=== PATIENT | female | born 1945 | race Caucasian/White ===

== ENCOUNTER 2022-02-25 07:37 | Inpatient (IN) | payer MEDICARE, BC ==
[2022-02-19 15:58] LABS: BASOPHILS # (AUTO) 0.1 X10'3 (0-0.2); BASOPHILS % (AUTO) 1.2 % (0-1); EOSINOPHILS # (AUTO) 0.2 X10'3 (0-0.9); EOSINOPHILS % (AUTO) 3.1 % (0-6); LYMPHOCYTES # (AUTO) 1.8 X10'3 (1.1-4.8); LYMPHOCYTES % (AUTO) 25.8 % (21-51); MEAN CORPUSCULAR HEMOGLOBIN 33.4 PG (27.0-31.0); MEAN CORPUSCULAR HGB CONC 34.2 g/dL (33.0-36.5); MEAN CORPUSCULAR VOLUME 97.6 FL (78-98); MEAN PLATELET VOLUME 7.6 FL (7.4-10.4); MONOCYTES # (AUTO) 0.5 X10'3 (0-0.9); MONOCYTES % (AUTO) 6.5 % (2-12); NEUTROPHILS # (AUTO) 4.5 X10'3 (1.8-7.7); NEUTROPHILS % (AUTO) 63.4 % (42-75); PRE OP HEMATOCRIT 45.1 % (35.0-45.0); PRE OP HEMOGLOBIN 15.4 g/dL (12.0-16.0); PRE OP PLATELET COUNT 217 X10'3 (140-440); RED BLOOD COUNT 4.62 X10'6 (4.20-5.60); RED CELL DISTRIBUTION WIDTH 13.7 % (11.5-14.5)
[2022-02-19 16:10] LABS: PRE OP INR 1.1 INR; PRE OP PROTIME 10.9 SECONDS (9.0-12.0)
[2022-02-19 16:12] LABS: ALBUMIN 3.6 G/DL (3.4-5.0); ALBUMIN/GLOBULIN RATIO 1.1 (1.1-1.5); ALKALINE PHOSPHATASE 99 IU/L (46-116); BLOOD UREA NITROGEN 15 MG/DL (7-18); BUN/CREATININE RATIO 20.5 (6.6-38.0); CALCIUM 9.1 MG/DL (8.5-10.1); CHLORIDE 108 MMOL/L (99-107); CREATININE 0.73 MG/DL (0.40-0.90); PRE OP ALT 26 U/L (30-65); PRE OP ANION GAP 10 (8-16); PRE OP AST 12 U/L (10-37); PRE OP BILIRUB, TOTAL 0.4 MG/DL (0.0-1.0); PRE OP GLUCOSE 98 MG/DL (70-104); PRE OP SODIUM 142 MMOL/L (135-145); TOTAL CARBON DIOXIDE 24.2 MMOL/L (24-32); TOTAL PROTEIN 6.8 G/DL (6.4-8.2); eGFR 78 ML/MIN
[~2022-02-25] VITALS: Ht 165.1 cm; Wt 65.0 kg
[2022-02-25] VITALS (22 sets, daily range): BP systolic 93–149; BP diastolic 41–96
[~2022-02-25 07:37] MED LIST: CHOL4PAC PO; HYDROmorphone 1 mg/ml syringe IV PRN; HYDROmorphone inj. 0.5 MG/0.5 ML DISP.SYRIN IV PRN; MULT-1085 PO; acetaminophen 325mg tablet PO ONE; acetaminophen 325mg tablet PO PRN; bisacodyl 10mg suppository rectal RC PRN; cefazolin/dext.iso 2gm/100ml 100 ML IV ONE; celeCOXIB 100mg capsule PO ONE; diphenhydrAMINE 25mg capsule PO PRN; famotidine 20mg tablet PO ONE; gabapentin 300mg capsule PO ONE; magnesium hydroxide 30ml (MOM) UD suspension PO PRN; metoclopramide 5 mg/ml inj IV ONE; naloxone 0.4 mg/ml inj IV PRN; ondansetron/PF 4mg/2ml inj IV PRN; oxyCODONE SR 10mg (sust. release) tab -2 tabs (20mg) PO ONE; ringers solution, lacted 1,000 ML IV SCH; tranexamic acid inj. 1,000 MG in normal saline 100ml IV soln 90 ML IV ONE; vancomycin/NS 1 GM in NS 250 ML IV ONE
[2022-02-25] MEDS ORDERED: chloestyramine/aspartame 4gm packet PO PRN (07:45)
[2022-02-25] MEDS: gabapentin 300mg capsule PO SCH ×3 (08:00→20:29)
[2022-02-25] MEDS: multivitamins, therapeutics tablet PO SCH (08:00)
[2022-02-25] MEDS: ascorbic acid 500mg tablet PO SCH ×2 (08:00→20:29)
[2022-02-25] MEDS: aspirin 325mg tablet PO SCH (08:30)
--- NOTE | 2022-02-25 08:55 | NUR ---
MEDS NOT SCANNING, SCANNER NOT WORKING AND NOT ANOTHER SCANNER AVAILABLE AT THIS TIME
--- NOTE | 2022-02-25 08:59 | NUR ---
CSM INTACT, PATIENT WATCHED ORTHOPEDIC DVD, TOOK SHOWER AND WIPE SKIN PREP
[2022-02-25] MEDS ORDERED: ketorolac trometh. 30mg/ml inj. ONE (10:37)
[2022-02-25] MEDS ORDERED: cloNIDine hcl/PF 100mcg/ml inj ONE (10:38)
[2022-02-25] MEDS ORDERED: vancomycin 1,000mg inj ONE (10:38)
[2022-02-25] MEDS ORDERED: epiNEPHrine 1 mg/ml inj ONE (10:38)
[2022-02-25] MEDS ORDERED: ROPIVAcaine 0.5% (5mg/ml) 30ml vial ONE (10:38)
[2022-02-25] MEDS ORDERED: fentaNYL/PF 50MCG/1 ML 2ML syringe ONE (11:12)
[2022-02-25] MEDS ORDERED: midazolam 1 mg/ML 2ml injection ONE (11:13)
[2022-02-25] MEDS ORDERED: diphenhydrAMINE 50 mg/ml inj ONE (12:02)
[2022-02-25] MEDS ORDERED: propofol inj 40 ML IV ONE (12:02)
--- NOTE | 2022-02-25 12:49 | NUR ---
Received from OR via HOSPITAL BED, accompanied by Anesthesiologist MAURO and report given by Anesthesiolgist. MATERIAL CONTROL ANALYST PRESENT. PT ARRIVES AAOX4, AWAKE TO VERBAL STIMULI, ON RA, VSS. REPORTS NO PAIN. SANDY DRAIN CLEAN DRY AND INTACT WITH R KNEE BRACE IN PLACE Addendum: 02/25/22 at 1313 by Freedom Adhikari RN Amended: Links added.
[2022-02-25] MEDS ORDERED: morphine 2 MG/ML inj. syringe IV PRN (12:55)
[2022-02-25] MEDS ORDERED: ringers solution, lacted 1,000 ML IV SCH (12:55)
[2022-02-25] MEDS ORDERED: HYDROmorphone/PF 0.2 MG/ML SYRINGE IV PRN ×2 (12:55)
[2022-02-25] MEDS ORDERED: ondansetron/PF 4mg/2ml inj IV PRN (12:55)
--- NOTE | 2022-02-25 14:36 | NUR ---
Patient in room ORTHO 4010B. I have received report from CJ SILVERMAN FROM [facility] and had the opportunity to ask questions and assume patient care.
--- NOTE | 2022-02-25 14:39 | NUR ---
Report called to receiving nurse BRIAN CORONA. Transferred via HOSPITAL BED WITHOUT INCIDENT. Belongings . PT HAS CALL LIGHT WITHIN REACH, UNDERSTANDS USE. RECEIVING RN PRESENT AT BEDSIDE. Special Issues communicated to receiving nurse. Addendum: 02/25/22 at 1548 by Freedom Adhikari RN Amended: Links added.
[2022-02-25] MEDS ORDERED: tranexamic acid inj. 700 MG in normal saline 100ml IV soln 93 ML IV ONE (15:00)
[2022-02-25] MEDS: potassium cl 20mEq in 1/2 NS 1,000 ML IV SCH ×3 (15:00→23:00)
[2022-02-25] MEDS: ceFAZolin/D5W- 1GM premix 50 ML IV SCH (16:50)
[2022-02-25] MEDS: HYDROcodone/acetaminophen 10/325mg tab PO PRN ×2 (17:03→21:07)
--- NOTE | 2022-02-25 18:31 | NUR ---
Patient in room ORTHO 4010. I have received report from Kelli CORONA and had the opportunity to ask questions and assume patient care.
--- NOTE | 2022-02-25 19:15 | NUR ---
Problems reprioritized. Patient report given, questions answered & plan of care reviewed with CJ SUTHERLAND.
[2022-02-25] MEDS ORDERED: sennosides 8.6mg tablet PO SCH (21:00)
[2022-02-26] MEDS: ceFAZolin/D5W- 1GM premix 50 ML IV SCH (00:12)
[2022-02-26] MEDS: HYDROcodone/acetaminophen 10/325mg tab PO PRN ×3 (00:51→09:13)
[2022-02-26] MEDS: potassium cl 20mEq in 1/2 NS 1,000 ML IV SCH (03:23)
[2022-02-26 06:00] VITALS: BP 134/62
[2022-02-26 06:05] LABS: BASOPHILS % (AUTO) 0.6 % (0-1); EOSINOPHILS # (AUTO) 0.2 X10'3 (0-0.9); HEMATOCRIT 44.1 % (35.0-45.0); HEMOGLOBIN 14.6 g/dl (12.0-16.0); LYMPHOCYTES # (AUTO) 1.4 X10'3 (1.1-4.8); MEAN CORPUSCULAR HEMOGLOBIN 33.1 PG (27.0-31.0); MEAN CORPUSCULAR HGB CONC 33.2 g/dL (33.0-36.5); MEAN CORPUSCULAR VOLUME 99.9 FL (78-98); MEAN PLATELET VOLUME 7.7 FL (7.4-10.4); MONOCYTES # (AUTO) 0.6 X10'3 (0-0.9); MONOCYTES % (AUTO) 7.9 % (2-12); NEUTROPHILS # (AUTO) 5.3 X10'3 (1.8-7.7); NEUTROPHILS % (AUTO) 70.5 % (42-75); PLATELET COUNT 152 X10'3 (140-440); RED BLOOD COUNT 4.41 X10'6 (4.20-5.60); RED CELL DISTRIBUTION WIDTH 13.5 % (11.5-14.5); WHITE BLOOD COUNT 7.5 X10'3 (4.5-11.0)
[2022-02-26 06:12] LABS: ANION GAP 10 (8-16); CHLORIDE 108 MMOL/L (99-107); POTASSIUM 4.8 MMOL/L (3.5-5.1); SODIUM 138 MMOL/L (135-145); TOTAL CARBON DIOXIDE 19.7 MMOL/L (24-32)
--- NOTE | 2022-02-26 06:20 | NUR ---
Problems reprioritized. Patient report given, questions answered & plan of care reviewed with Sha CORONA. Patient is currently up and working with [employer].
--- NOTE | 2022-02-26 06:39 | NUR ---
Patient in room ORTHO 4010. I have received report from Lianna CORONA and had the opportunity to ask questions and assume patient care.
[2022-02-26] MEDS ORDERED: vancomycin/NS 1 GM ADD-VANTAGE 250 ML IV SCH (08:00)
[2022-02-26] MEDS: gabapentin 300mg capsule PO SCH (08:18)
[2022-02-26] MEDS: multivitamins, therapeutics tablet PO SCH (08:19)
[2022-02-26] MEDS: ascorbic acid 500mg tablet PO SCH (08:21)
[2022-02-26] MEDS: aspirin 325mg tablet PO SCH (08:21)
--- NOTE | 2022-02-26 09:42 | NUR ---
Joint surgery consult: Pt s/p R hip surgery this admit per EMR. Pt seen by MAI for written/verbal high protein diet ed w/ RD contact information provided. MAI encouraged pt to contact dietitian's office if further questions/concerns. Addendum: 02/26/22 at [address] Amended: Links added.
[2022-02-26 10:11] VITALS: BP 143/61
--- NOTE | 2022-02-26 11:13 | NUR ---
patient discharged home with grand daughter, discharge instructions given. PIV x2 removed
[2022-02-26] MEDS ORDERED: celeCOXIB 100mg capsule PO SCH (20:00)
== END 2022-02-26 11:08 | disposition home or self-care (01) | DRG 470 ==
LOC: PAS 07:37 → ORTHO 4S 07:37 → PAS 07:38 → ORTHO 4S 07:38
PROVIDERS: ADMIT Orthopaedic Surgery; ATTEND Orthopaedic Surgery
PROC: 0SR906Z Replacement of Right Hip Joint with Oxidized Zirconium on Polyethylene Synthetic Substitute, Open Approach (ICD-10-PCS; principal; 2022-02-25 11:11)
DX: M16.11 Unilateral primary osteoarthritis, right hip (principal); Z79.82 Long term (current) use of aspirin
CPT/HCPCS: 36415; 71046; 72170; 80051; 80053; 82948; 85025; 85610; 85730; 86885; 86900; 86901; 87081; 97110; 97116; 97161; 97530; A7000; C1776; G0378; J0171; J0690; J0735; J1170; J1200; J1885; J2250; J2704; J2765; J2795; J3010; J3370; J3480; J3490; J7120; U0003; U0005

== ENCOUNTER 2023-03-03 13:36 | Outpatient (CLI) | payer BC, MEDICARE ==
[~2023-03-03 13:36] MED LIST changes: -CHOL4PAC PO; +CHOL4POW4 PO; -HYDROmorphone 1 mg/ml syringe IV PRN; -HYDROmorphone inj. 0.5 MG/0.5 ML DISP.SYRIN IV PRN; -acetaminophen 325mg tablet PO ONE; -acetaminophen 325mg tablet PO PRN; -bisacodyl 10mg suppository rectal RC PRN; -cefazolin/dext.iso 2gm/100ml 100 ML IV ONE; -celeCOXIB 100mg capsule PO ONE; -diphenhydrAMINE 25mg capsule PO PRN; -famotidine 20mg tablet PO ONE; -gabapentin 300mg capsule PO ONE; -magnesium hydroxide 30ml (MOM) UD suspension PO PRN; -metoclopramide 5 mg/ml inj IV ONE; -naloxone 0.4 mg/ml inj IV PRN; -ondansetron/PF 4mg/2ml inj IV PRN; -oxyCODONE SR 10mg (sust. release) tab -2 tabs (20mg) PO ONE; -ringers solution, lacted 1,000 ML IV SCH; -tranexamic acid inj. 1,000 MG in normal saline 100ml IV soln 90 ML IV ONE; -vancomycin/NS 1 GM in NS 250 ML IV ONE
== END 2023-03-03 23:59 | disposition home or self-care (01) ==
LOC: VAS 13:36
PROVIDERS: ATTEND Family Medicine
DX: M25.561 Pain in right knee (principal); M71.21 Synovial cyst of popliteal space [Baker], right knee; M25.469 Effusion, unspecified knee
CPT/HCPCS: 93971